=== PATIENT | male | born 1970 | race Caucasian/White ===

== ENCOUNTER → 2018-05-25 | Outpatient (CLI) | payer BC ==
[~2018-05-25] MED LIST: ACET-1256 PO
--- NOTE | 2018-05-25 12:16 | DIAGNOSTIC IMAGING REPORT ---
R ANKLE MIN 3 VIEWS ROUTINE CLINICAL HISTORY: Right ankle and foot pain following injury. COMPARISON: None FINDINGS: Alignment of the right ankle is anatomic. Talar dome is intact. No acute fracture is identified. There is minimal posterior and plantar calcaneal spurring. A well-corticated ossicle along the medial malleolus is likely old. IMPRESSION: No acute fracture or dislocation of the right ankle. Electronically signed by: Rai Good M.D. 05/25/2018 12:14 PM Dictated Date/Time: 05/25/2018 12:13 PM
--- NOTE | 2018-05-25 12:29 | DIAGNOSTIC IMAGING REPORT ---
R FOOT MIN 3 VIEWS ROUTINE CLINICAL HISTORY: Right foot pain following injury. COMPARISON: None FINDINGS: Alignment of the right foot is anatomic. Tarsometatarsal joints are intact. No acute fracture is identified within the right foot. No erosions are identified. IMPRESSION: No acute fracture or dislocation within the right foot. Electronically signed by: Rai Good M.D. 05/25/2018 12:28 PM Dictated Date/Time: 05/25/2018 12:27 PM
== END | disposition home or self-care (01) ==
LOC: C.RADPV 11:05
PROVIDERS: ATTEND Family Medicine
DX: M79.671 Pain in right foot (principal)